=== PATIENT | female | born 1990 | race Caucasian/White ===

== ENCOUNTER → 2019-04-19 | Outpatient (CLI) | payer OTHER ==
--- NOTE | 2019-04-19 14:42 | RAD ---
EXAM: MRI right shoulder DATE: 04/19/2019 1:00 PM COMPARISON: None INDICATION: Right shoulder pain TECHNIQUE: Multiplanar, multisequence MRI of the right shoulder was performed without contrast. FINDINGS: Of note, marked loss of signal on the sagittal STIR image significantly limits evaluation. AC joint is congruent. Mild lateral downsloping of the distal acromion. No significant subacromial subdeltoid bursal edema. No glenohumeral joint effusion. No rotator cuff tear. Rotator cuff muscle signal and bulk is normal without fatty atrophy. The intra-articular long head biceps tendon is normal in signal and morphology. Intra-articular long head biceps tendon is seen within the bicipital groove. No discrete labral tear. Survey evaluation of the articular cartilage, grossly preserved. No evidence for fracture or osteonecrosis. IMPRESSION: 1. No evidence for rotator cuff tear. 2. Lateral downsloping of the distal acromion. No significant AC joint degenerative change. Electronically signed by: Jose Raul Figueroa MD (04/19/2019 2:39 PM) [id number]
== END | disposition home or self-care (01) ==
LOC: MRI 15:28
PROVIDERS: ATTEND Registered Nurse
DX: M25.511 Pain in right shoulder (principal); X50.1XXA Overexertion from prolonged static or awkward postures, initial encounter; Y93.89 Activity, other specified; Y92.89 Other specified places as the place of occurrence of the external cause; Y99.8 Other external cause status
CPT/HCPCS: 73221